=== PATIENT | female | born 1985 | race American Indian/Alaskan Native ===

== ENCOUNTER 2017-01-17 11:05 | Emergency (ER) | payer OTHER ==
[2017-01-17 11:14] VITALS: BP 110/68
[2017-01-17] MEDS ORDERED: BICILLIN L-A IM ONE (11:15)
--- NOTE | 2017-01-17 11:18 | Emergency Department Report ---
ED ENT HPI - General Chief complaint: Sore Throat Stated complaint: SORE THROAT/EARACHE/TROUBLE BREATHING Time Seen by Provider: 01/17/17 11:12 Source: patient Mode of arrival: Ambulatory Limitations: No Limitations - History of Present Illness Initial comments: PT c/o sore throat x 2 days. PT also c/o ear pain. PT states both ears hurt. PT denies sick contacts. MD complaint: sore throat Onset/Timin Location: R ear, L ear, throat Severity: severe Quality: aching, sharp, constant Consistency: constant Improves with: none Worsens with: swallowing, eating Context- Ear: recent illness Associated Symptoms: pain with swallowing, sore throat. denies: fever, cough, discharge from ear - Related Data Allergies Allergy/AdvReac Type Severity Reaction Status Date / Time No Known Allergies Allergy Verified 01/17/17 11:14 ED Dental HPI - General Stated complaint: SORE THROAT/EARACHE/TROUBLE BREATHING Time Seen by Provider: 01/17/17 11:12 Source: patient Mode of arrival: Ambulatory Limitations: No Limitations - Related Data Allergies Allergy/AdvReac Type Severity Reaction Status Date / Time No Known Allergies Allergy Verified 01/17/17 11:14 ED Review of Systems ROS: Stated complaint: SORE THROAT/EARACHE/TROUBLE BREATHING Other details as noted in HPI Comment: All other systems reviewed and negative Constitutional: denies: fever ENT: throat pain Respiratory: denies: cough, shortness of breath Gastrointestinal: denies: nausea, vomiting Genitourinary: denies: abnormal menses ED Past Medical Hx - Past Medical History Previous Medical History?: No - Surgical History Past Surgical History?: No - Social History Smoking Status: Never Smoker Substance Use Type: None ED Physical Exam - General Limitations: No Limitations General appearance: alert, in no apparent distress - Head Head exam: Present: atraumatic, normocephalic, normal inspection - Eye Eye exam: Present: normal appearance, PERRL. Absent: conjunctival injection - ENT ENT exam: Present: mucous membranes moist, normal external ear exam. Absent: TM 's normal bilaterally - Expanded ENT Exam Expanded TM/Canal exam: Cerumen Impaction: Right TM, Left TM Mouth exam: Absent: drooling, trismus Teeth exam: Present: normal inspection Throat exam: Positive: tonsillar erythema, tonsillomegaly, tonsillar exudate. Negative: R peritonsillar mass, L peritonsillar mass - Neck Neck exam: Present: normal inspection, tenderness, full ROM, lymphadenopathy - Respiratory Respiratory exam: Present: normal lung sounds bilaterally. Absent: respiratory distress, wheezes, rales, chest wall tenderness - Cardiovascular Cardiovascular Exam: Present: regular rate, normal rhythm, normal heart sounds - Extremities Exam Extremities exam: Present: normal inspection, full ROM - Back Exam Back exam: Present: normal inspection, full ROM. Absent: tenderness, CVA tenderness (R), CVA tenderness (L), muscle spasm - Neurological Exam Neurological exam: Present: alert, oriented X3 - Psychiatric Psychiatric exam: Present: normal affect, normal mood - Skin Skin exam: Present: warm, dry, intact ED Course Vital Signs 01/17/17 11:10 Temperature 98.7 F Pulse Rate 98 H Respiratory 16 Rate Blood Pressure 110/68 O2 Sat by Pulse 99 Oximetry - Reevaluation(s) Reevaluation #1: 01/17/17 11:15 PT aware of dx and plan of care. Reevaluation #2: 01/17/17 11:39 PT given Bicillin in the ED for her exudative pharyngitis. Pt aware of dx and plan of care. PT has no questions at this time. verbal instructions given for strep throat and cerumen impaction. - Pulse Oximetry Interpretation Digit-Finger Initial Pulse Oximetry Readin Actions Taken: none ED Medical Decision Making - Differential Diagnosis viral uri, strep pharyngitis, om Critical care attestation.: If time is entered above; I have spent that time in minutes in the direct care of this critically ill patient, excluding procedure time. ED Disposition Clinical Impression: Impacted cerumen of both ears, Exudative pharyngitis Disposition: DC-01 TO HOME OR SELFCARE Is pt being admited?: No Does the pt Need Aspirin: No Condition: Stable Instructions: Cerumen Impaction (ED), Strep Throat (ED), Tonsillitis (ED) Additional Instructions: USE OTC ear wax remover Do not use qtips to clean your ears Referrals: RENATE LARA MD [Staff Physician] - 3-5 Days Forms: Accompanied Note, Work/School Release Form(ED) Time of Disposition: 11:21
== END 2017-01-17 11:43 | disposition home or self-care (01) ==
LOC: ED 11:05
DX: J02.9 Acute pharyngitis, unspecified (principal); H61.23 Impacted cerumen, bilateral
CPT/HCPCS: 96372; 99282; J0561